=== PATIENT | female | born 1935 | race Caucasian/White ===

== ENCOUNTER 2021-01-12 07:46 | Emergency (ER) | payer MEDICARE, OTHER, SELFPAY ==
[2021-01-12] VITALS (7 sets, daily range): BP systolic 129–150; BP diastolic 59–80; PULSE 76–92; RESP 18; TEMP 36.6; O2SAT 91–93; BMI 28.8
--- NOTE | 2021-01-12 07:55 | DI.RAD.S_ITS ---
PROCEDURE: XR SHOULDER RT MIN 2V INDICATIONS: shoulder pain TECHNIQUE: 3 views of the shoulder were acquired. COMPARISON: None. FINDINGS: Bones: No acute fracture. Severe glenohumeral joint degeneration with [id number] appearance. Diffuse osteopenia. Moderate AC joint degeneration also noted. Bulky osteophyte formation at the inferior glenohumeral head. Soft tissues: No suspicious soft tissue calcifications. IMPRESSION: Severe glenohumeral joint degeneration. No definite fracture although advanced arthritic changes results in suboptimal study sensitivity. Dictated by: Hernando Pa M.D. on 01/12/2021 at 10:29 Approved by: Hernando Pa M.D. on 01/12/2021 at 10:38
--- NOTE | 2021-01-12 07:55 | DI.RAD.S_ITS ---
PROCEDURE: XR CHEST 1V INDICATIONS: Fall TECHNIQUE: One view of the chest was acquired. COMPARISON: None. FINDINGS: Surgical changes and devices: None. Lungs and pleura: There is consolidation in the right lung base along with a 2.9 centimeter nodular opacity projecting over the right atrium. There is also a 2.7 centimeter nodular opacity projecting over the left lung base just lateral to the left heart border. No pleural effusions or pneumothorax. Mediastinum: Mediastinal contours appear normal. Heart size is normal. Bones and chest wall: No suspicious bony lesions. Overlying soft tissues appear unremarkable. IMPRESSION: Nodular opacities and airspace consolidation in the lung bases. Findings are nonspecific. A CT chest is recommended for further evaluation. Dictated by: Tomas Brito M.D. on 01/12/2021 at 9:16 Approved by: Tomas Brito M.D. on 01/12/2021 at 9:31
--- NOTE | 2021-01-12 07:59 | DI.CT.S_ITS ---
PROCEDURE: CT CERVICAL SPINE WO CON INDICATIONS: fall, unknown TECHNIQUE: Noncontrast 3 mm thick sections acquired from the skull base to the T4 level. Sagittal and coronal reformats were then constructed. For radiation dose reduction, the following was used: automated exposure control, adjustment of mA and/or kV according to patient size. COMPARISON: [facility], CT, CT CERVICAL SPINE WITHOUT CONTRAST, 01/14/2020, 14:01. FINDINGS: Image quality: Excellent. Bones: No fractures or dislocations. Visualized superior ribs are intact. Cervical spondylitic change. Multilevel bilateral cervical facet arthropathy. Multilevel bony foraminal min narrowing, most significantly at C3-C4 and C4-C5 and C5-C6 on the left. Soft tissues: Prevertebral soft tissues are normal in thickness. No paravertebral hematomas. No apical pneumothoraces. IMPRESSION: 1. No evidence of acute cervical fracture or dislocation. 2. Cervical spondylitic change. Dictated by: Mario Middleton M.D. on 01/12/2021 at 8:48 Approved by: Mario Middleton M.D. on 01/12/2021 at 8:52
--- NOTE | 2021-01-12 08:01 | ED.FALL ---
HPI - Fall General Chief Complaint: Fall Stated Complaint: Fall out of bed Time Seen by Provider: 01/12/21 07:47 Source: patient and EMS Mode of arrival: EMS Limitations: no limitations History of Present Illness HPI Narrative: 85-year-old female comes to the emergency department after fall out of bed. Patient lives at a care facility. Staff states that it was unwitnessed fall that they believe it happened approximately 45 minutes prior to arrival. Patient per staff was not her baseline mental status. Per EMS she is mildly confused but conversant. She tells them it is Wendi but also has a Wendi tree up in her room. Patient is able to answer quite a few questions without issue for them. Patient has a history of AFib, autonomic peripheral neuropathy, hypertension, dyslipidemia and does take Pradaxa. She states she has an allergy to sulfa. She describes orthopedic injury for her knee. At this time she has complained of right shoulder discomfort coming across her upper thoracic region. She denies any other symptoms. She is unaware if she hit her head. She denies headache she denies neck pain. No chest pain or shortness of breath. She denies any pelvic or hip pain. She states both her knees are uncomfortable but she is able to move them. She denies any numbness or tingling. Related Data Allergies Allergy/AdvReac Type Severity Reaction Status Date / Time Sulfa (Sulfonamide Allergy Unknown Verified 01/12/21 08:08 Antibiotics) Review of Systems Review of Systems ROS Unobtainable: All systems reviewed & are unremarkable except as noted in HPI and below Patient History Social History Smoking Status: Never smoker Exam Narrative Exam Narrative: GEN: Patient appears in mild distress. HEAD: No evidence of trauma, no raccoon/Aj sign. NECK: Nontender, painless range of motion, trachea midline Positive Nexus criteria, there is no mid line tenderness, distracting injury, questionable altered mental status,no neuro deficit, recent EtOH. EYES: PERRLA, EOMI ENT: External inspection normal, trachea is midline, TM's are normal no hemotypanum, Nares are clear, no septal hematoma, no dental or oral injury, airway is normal and with normal occlusion, No bony tenderness RESP: Chest is nontender and has symmetric movement, no ecchymosis, breath sounds are normal no crackles, wheezes or rales CVS: Heart sounds are normal, no murmur noted, No JVD. ABG/GI: Nontender, soft, normal bowel sounds, no distention, no organomegaly, pelvic rock is negative. NEURO: Oriented to self and location and general situation, neuro is grossly intact, sensation and motor is normal all 4 extremities moving, cranial nerves II through XII are intact, GCS is 14 PSYCH: Normal mood and affect SKIN: Intact, warm and dry, no crepitus and without decubitus BACK: No CVA tenderness, no vertebral tenderness, no step-off's, no crepitus EXT: Patient has some mild right shoulder tenderness but no obvious deformity. Patient does have good range of motion in that shoulder, no other bony tenderness, are nontender, no pedal edema, normal color and temperature, normal range of motion of extremities with normal tendon exam, 2+ pulses in all four extremities Initial Vital Signs Initial Vital Signs: Vital Signs Temperature 97.8 F 01/12/21 07:50 Pulse Rate 88 01/12/21 07:50 Respiratory Rate 18 01/12/21 07:50 Blood Pressure 144/76 H 01/12/21 07:50 Pulse Oximetry 93 01/12/21 07:50 Scores GCS Hackett coma scale eye opening: Spontaneous Ibis coma scale verbal response: Confused Hackett coma scale motor response: Obey commands Hackett coma scale total score: 14 Course Orders Ordered: Discontinued Medications Acetaminophen (Acetaminophen 325 Mg Tablet) 975 mg PO NOW ONE Stop: 01/12/21 07:56 Last Admin: 01/12/21 08:31 Dose: 975 mg Documented by: RUTHANN Vital Signs Vital signs: Vital Signs - 8 hr 01/12/21 12:40 Pulse Rate 76 Respiratory Rate 18 Blood Pressure 129/59 L Pulse Oximetry 92 MDM - Fall Imaging Data Extremity x-ray #1: Radiologist's Impression: [address] [address] XRay Report Signed Patient: Oliva Lerma MR#: [id number] : 1935 Acct:[id number] Age/Sex: 85 / F Date of Service: 01/12/21 Loc: ED Accession Number: [id number] ?? Procedure: XR shoulder RT min 2V Ordering Provider: Renea Edge D.O. PROCEDURE:? XR SHOULDER RT MIN 2V ? INDICATIONS:? shoulder pain ? TECHNIQUE:? 3 views of the shoulder were acquired.? ? COMPARISON:? None. ? FINDINGS:? ? Bones:? No acute fracture.? Severe glenohumeral joint degeneration with [id number] appearance.? Diffuse osteopenia.? Moderate AC joint degeneration also noted.? Bulky osteophyte formation at the inferior glenohumeral head. ? Soft tissues:? No suspicious soft tissue calcifications.? ? IMPRESSION:? Severe glenohumeral joint degeneration.? No definite fracture although advanced arthritic changes results in suboptimal study sensitivity. ? Dictated by: Hernando Pa M.D. on 01/12/2021 at 10:29 ? ? Approved by: Hernando Pa M.D. on 01/12/2021 at 10:38?? CT scan - head: Radiologist's Impression: Oliva Lerma??85??F??1935 ? Allergy/Adv: Sulfa (Sulfonamide Antibiotics) (More??) Close Head CT (Signed) Yi Jimenes - 01/12/[address] (Signed) Mario Middleton - 01/12/21 Shoulder X-Ray (Signed) Hernando Pa - 01/12/21 Chest X-Ray (Signed) Tomas Brito - 01/12/21 Launch?[place] [address] CT Scan Report Signed Patient: Oliva Lerma MR#: [id number] : 1935 Acct:[id number] Age/Sex: 85 / F Date of Service: 01/12/21 Loc: ED Accession Number: [id number] ?? Procedure: CT head/brain wo con Ordering Provider: Renea Edge D.O. PROCEDURE:? CT HEAD/BRAIN WO CON ? INDICATIONS:? fall on pradaxa, ? change mental status ? TECHNIQUE:? Noncontrast 4.5 mm thick angled axial sections acquired from the foramen magnum to the vertex, with coronal and sagittal reformats.? For radiation dose reduction, the following was used:? automated exposure control, adjustment of mA and/or kV according to patient size.? ? COMPARISON:? [facility], CT, CT HEAD WITHOUT CONTRAST, 01/14/2020, 14:01. ? FINDINGS:? Image quality:? Excellent.? ? CSF spaces:? Basal cisterns are patent.? No extra-axial fluid collections.? The ventricles are symmetric in size and shape.? ? Brain:? No intracranial bleeds or masses.? There is cerebral volume loss for age, with resultant ventricular and sulcal prominence.? There are periventricular and deep white matter chronic small vessel ischemic changes.? There is intracranial internal carotid artery atherosclerosis.? ? Skull and face:? Calvarium and visualized facial bones appear intact, without suspicious lesions.? Small left parietal occipital scalp hematoma. ? Sinuses:? Visualized sinuses and mastoids are clear.? ? IMPRESSION:? ? 1. No acute intracranial process. ? 2. Moderate atrophy and chronic microvascular ischemic changes. ? ? The above findings are concordant with preliminary report. ? ? ? Dictated by: Yi Jimenes M.D. on 01/12/2021 at 8:56 ? ? Approved by: Yi Jimenes M.D. on 01/12/2021 at 8:58? CT - cervical spine: Radiologist's Impression: Oliva Lerma??85??F??1935 ? Allergy/Adv: Sulfa (Sulfonamide Antibiotics) (More??) Close Head CT (Signed) Yi Jimenes - 01/12/[address] (Signed) Mario Middleton - 01/12/21 Shoulder X-Ray (Signed) Hernando Pa - 01/12/21 Chest X-Ray (Signed) Tomas Brito - 01/12/21 Launch?[place] [address] CT Scan Report Signed Patient: Oliva Lerma MR#: [id number] : 1935 Acct:[id number] Age/Sex: 85 / F Date of Service: 01/12/21 Loc: ED Accession Number: [id number] ?? Procedure: CT cervical spine wo con Ordering Provider: Renea Edge D.O. PROCEDURE:? CT CERVICAL SPINE WO CON ? INDICATIONS:? fall, unknown ? TECHNIQUE:? Noncontrast 3 mm thick sections acquired from the skull base to the T4 level.? Sagittal and coronal reformats were then constructed.? For radiation dose reduction, the following was used:? automated exposure control, adjustment of mA and/or kV according to patient size.? ? COMPARISON:? [facility], CT, CT CERVICAL SPINE WITHOUT CONTRAST, 01/14/2020, 14:01. ? FINDINGS:? Image quality:? Excellent.? ? Bones:? No fractures or dislocations.? Visualized superior ribs are intact.? Cervical spondylitic change.? Multilevel bilateral cervical facet arthropathy.? Multilevel bony foraminal min narrowing, most significantly at C3-C4 and C4-C5 and C5-C6 on the left. ? Soft tissues:? Prevertebral soft tissues are normal in thickness.? No paravertebral hematomas.? No apical pneumothoraces.? ? ? IMPRESSION:? ? 1. No evidence of acute cervical fracture or dislocation. ? 2. Cervical spondylitic change. ? Dictated by: Mario Middleton M.D. on 01/12/2021 at 8:48 ? ? Approved by: Mario Middleton M.D. on 01/12/2021 at 8:52?? Chest x-ray: Radiologist's Impression: Launch?[place] [address] XRay Report Signed Patient: Oliva Lerma MR#: [id number] : 1935 Acct:[id number] Age/Sex: 85 / F Date of Service: 01/12/21 Loc: ED Accession Number: [id number] ?? Procedure: XR chest 1V Ordering Provider: Renea Edge D.O. PROCEDURE:? XR CHEST 1V ? INDICATIONS:? Fall ? TECHNIQUE:? One view of the chest was acquired.? ? COMPARISON:? None. ? FINDINGS:? ? Surgical changes and devices:? None.? ? Lungs and pleura:? There is consolidation in the right lung base along with a 2.9 centimeter nodular opacity projecting over the right atrium.? There is also a 2.7 centimeter nodular opacity projecting over the left lung base just lateral to the left heart border.? No pleural effusions or pneumothorax.? ? Mediastinum:? Mediastinal contours appear normal.? Heart size is normal.? ? Bones and chest wall:? No suspicious bony lesions.? Overlying soft tissues appear unremarkable.? ? IMPRESSION:? Nodular opacities and airspace consolidation in the lung bases.? Findings are nonspecific.? A CT chest is recommended for further evaluation. ? ? Dictated by: Tomas Brito M.D. on 01/12/2021 at 9:16 ? ? Approved by: Tomas Brito M.D. on 01/12/2021 at 9:31? MDM Narrative Medical decision making narrative: This is an 85-year-old female who comes to the emergency department after an unwitnessed fall possibly from bed. Patient appears to be at her current baseline she is slightly confused but able to answer majority of questions appropriately. Head CT and C-spine were obtained she was anticoagulated and mildly pleasantly confused. Chest x-ray shows some nodular opacities and airspace consolidation which is nonspecific. Patient's shoulder shows degenerative changes but no acute fractures and patient has good range of motion. Patient is otherwise medically cleared. Discharge Plan Departure Patient Disposition: Home Clinical Impression: Right shoulder pain, Fall Instructions: DI for Shoulder Pain Activity Restrictions/Additional Instructions: Follow-up with your physician in the next week for recheck your not having improvement of your symptoms. You may continue to take Tylenol up to a 1000 mg every 8 hours as needed for pain. Your imaging today does not show any acute changes. Your shoulder x-ray shows degenerative changes but no breaks or fractures or dislocations today. Please return for fevers, new worsening chest pain or shortness of breath, lightheadedness or passing out, persistent vomiting new neck or back pain, altered mental status, new weakness difficulty with movement or other new or concerning symptoms.
--- NOTE | 2021-01-12 08:18 | DI.CT.S_ITS ---
PROCEDURE: CT HEAD/BRAIN WO CON INDICATIONS: fall on pradaxa, ? change mental status TECHNIQUE: Noncontrast 4.5 mm thick angled axial sections acquired from the foramen magnum to the vertex, with coronal and sagittal reformats. For radiation dose reduction, the following was used: automated exposure control, adjustment of mA and/or kV according to patient size. COMPARISON: [facility], CT, CT HEAD WITHOUT CONTRAST, 01/14/2020, 14:01. FINDINGS: Image quality: Excellent. CSF spaces: Basal cisterns are patent. No extra-axial fluid collections. The ventricles are symmetric in size and shape. Brain: No intracranial bleeds or masses. There is cerebral volume loss for age, with resultant ventricular and sulcal prominence. There are periventricular and deep white matter chronic small vessel ischemic changes. There is intracranial internal carotid artery atherosclerosis. Skull and face: Calvarium and visualized facial bones appear intact, without suspicious lesions. Small left parietal occipital scalp hematoma. Sinuses: Visualized sinuses and mastoids are clear. IMPRESSION: 1. No acute intracranial process. 2. Moderate atrophy and chronic microvascular ischemic changes. The above findings are concordant with preliminary report. Dictated by: Yi Jimenes M.D. on 01/12/2021 at 8:56 Approved by: Yi Jimenes M.D. on 01/12/2021 at 8:58
[2021-01-12] MEDS: ACETAMINOPHEN 325 MG TABLET 975 MG PO (08:31)
--- NOTE | 2021-01-12 09:30 | PC.NURSE ---
Pt up to bedside commode for BM and urinary output. Requiring 3 staff for transfer and rajesh-care. Brief placed when pt put back in bed. Personal belongings (soiled pants, watch, earrings) place in labeled bag.
--- NOTE | 2021-01-12 12:20 | PC.NURSE ---
Report called to living facility. They now state that she is more confused than normal. MD aware. Plan to DC with workup as-is. Imaging negative. Facility to follow up re labwork.
== END 2021-01-12 12:42 | disposition home or self-care (01) ==
PROVIDERS: Emergency Provider Emergency Medicine
DX: M25.511 Pain in right shoulder (principal); R41.0 Disorientation, unspecified; W06.XXXA Fall from bed, initial encounter
CPT/HCPCS: 70450; 71045; 72125; 73030; 99283; 99284

== ENCOUNTER 2021-07-14 15:34 | Observation (INO) | payer MEDICARE, OTHER, SELFPAY ==
[2021-07-14] VITALS (14 sets, daily range): BP systolic 124–167; BP diastolic 65–83; PULSE 63–69; RESP 16–29; TEMP 36.3–36.4; O2SAT 92–98; BMI 21.5
--- NOTE | 2021-07-14 15:55 | DI.RAD.S_ITS ---
PROCEDURE: XR CHEST 1V INDICATIONS: chest pain TECHNIQUE: One view of the chest was acquired. COMPARISON: [facility], CR, XR CHEST 1 VIEW, 09/02/2018, 11:42. [facility], CR, XR CHEST 1V, 01/12/2021, 8:09. [facility], CR, XR CHEST 1 VIEW, 01/12/2021, 19:02. FINDINGS: Surgical changes and devices: None. Lungs and pleura: Nodular opacities adjacent to the left heart border are unchanged since at least August 2018 study. Increased interstitial markings in both lungs. No pleural effusions or pneumothorax. Mediastinum: Mediastinal contours appear normal. Heart size is enlarged. Bones and chest wall: No suspicious bony lesions. Overlying soft tissues appear unremarkable. IMPRESSION: Cardiomegaly with findings of mild to moderate pulmonary edema. Dictated by: Tomas Brito M.D. on 07/14/2021 at 16:44 Approved by: Tomas Brito M.D. on 07/14/2021 at 16:44
[2021-07-14 16:00] LABS: Add Manual Diff / Slide Review NO; Basophils Absolute Auto 100 /uL (0-100); Eosinophils Absolute Auto 0 /uL (0-450); Eosinophils Percent Auto 0.5 % (2-4); Hematocrit 45.6 % (36-46); Hemoglobin 15.4 g/dL (12.0-16.0); Lymphocytes Absolute Auto 1500 /uL (1100-4500); Lymphocytes Percent Auto 22.3 % (25-40); Mean Corpuscular HGB Conc 33.8 % (30-36); Mean Corpuscular Volume 85.8 fL (80-100); Monocytes Absolute Auto 700 /uL (0-900); Monocytes Percent Auto 9.7 % (3-14); Neutrophils Absolute Auto 4500 /uL (1500-7000); Neutrophils Percent Auto 66.5 % (50-75); Platelet Count 224 X10^3/uL (150-400); Red Blood Cell Count 5.32 X10^6/uL (4.0-5.2); Red Cell Distribution Width 16.5 % (11.6-14.8); White Blood Cell Count 6.8 X10^3/uL (4.5-11.0)
[2021-07-14 16:25] LABS: Alanine Aminotransferase 16 IU/L (<35); Albumin 4.3 g/dL (3.5-5.0); Albumin Globulin Ratio 1.5 (1.0-2.8); Alkaline Phosphatase 73 U/L (38-126); Aspartate Aminotransferase 26 IU/L (14-36); BUN Creatinine Ratio 15.2 (6-22); Bilirubin Total 0.6 mg/dL (0.2-1.3); Blood Urea Nitrogen 16 mg/dL (7-17); Carbon Dioxide 27 mmol/L (22-32); Chloride 103 mmol/L (98-107); Creatine Kinase 213 U/L (30-135); Estimated Glomerular Filt Rate 49.9 mL/min (>60); Globulin 2.9 g/dL (1.7-4.1); Glucose 99 mg/dL (80-110); HEMOLYSIS < 15 (0-50); Lipase 90 U/L (23-300); Magnesium 2.2 mg/dL (1.6-2.3); Potassium 4.6 mmol/L (3.4-5.1); Sodium 137 mmol/L (137-145); Total Protein 7.2 g/dL (6.3-8.2)
[2021-07-14 16:37] LABS: Troponin I < 0.012 ng/mL (0.01-0.034)
[2021-07-14 16:39] LABS: CKMB % Relative Index 1.7 % (1.5-5.0); Creatine Kinase MB 3.53 ng/mL (<2.37)
--- NOTE | 2021-07-14 16:41 | PC.NURSE ---
Patient is AO to name/ but disoriented to year/president and personal residence location. 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 Otherwise, pt is unclear as to her current health situation or why she is at the hospital today.
--- NOTE | 2021-07-14 16:53 | ED_ITS ---
HPI - Weakness General Chief complaint: Extremity Injury, Upper Stated complaint: Right side back and arm pain Time Seen by Provider: 07/14/21 16:45 Source: EMS and other Mode of arrival: EMS History of Present Illness HPI Narrative: Patient is an 85-year-old female who has had a [facility] facility she is wheelchair-bound presenting with generalized weakness. According to the facility she may be leaning more toe right. Patient denies any complaint except weakness. She has no pain. She denies any falling. There is no report from the facility that she has fallen. He apparently has reported some knee pain and arm pain but seems moving all extremities is without difficulty and no obvious sign of trauma. He denies any chest pain or palpitations. She overall appears comfortable. According to the daughter she has a history of dementia, she was admitted to [facility] for atrial fibrillation place time xa. She went to a rehab facility and then had further PT. She apparently got up to 1 person assist and then was released. Daughter states that she has been wheelchair- bound since then but has definitely been declining. According to the facility she is definitely a 2 person assist now she was previously able to help with transfers but extremely today and unable to do so. Related Data Allergies Allergy/AdvReac Type Severity Reaction Status Date / Time Sulfa (Sulfonamide Allergy Unknown Verified 01/12/21 08:08 Antibiotics) Review of Systems Constitutional Constitutional: Denies body ache(s), Denies chills and Denies frequent falls Eyes Eyes: Denies exophthalmos Cardiovascular Cardiovascular: Denies chest pain and Denies irregular heart rhythm Respiratory Respiratory: Denies chest congestion and Denies cough Gastrointestinal Gastrointestinal: Denies abdominal pain, Denies nausea and Denies vomiting Genitourinary Genitourinary: Reports urinary incontinence Musculoskeletal Musculoskeletal: Reports as per HPI, Reports arthralgias and Denies myalgias Integumentary/Breasts Skin/Breast: Denies rash and Denies skin pain Neurologic Neurologic: Reports as per HPI (dementia at baseline) and Denies frequent falls Patient History Medical History Dementia Social History Smoking Status: Never smoker Smoking Status: Never smoker alcohol intake frequency: other Substance Use Type: does not use Exam Initial Vital Signs Initial Vital Signs: Vital Signs Pulse Rate 64 07/14/21 15:48 Respiratory Rate 17 07/14/21 15:48 Pulse Oximetry 94 07/14/21 15:48 GENERAL: Alert pleasant 85-year-old female appears in no acute distress HEENT: Head atraumatic,EOMI, pupils reactive, face symmetric, moist mucous membranes CARDIOVASCULAR: Regular rate and rhythm without murmurs, rubs or gallops. RESPIRATORY: Breath sounds equal bilaterally, no wheezes rales or rhonchi. ABDOMEN: Soft, nontender. Normoactive bowel sounds all 4 quadrants. No guarding or rebound. EXTREMITIES: Normal range of motion, no clubbing or edema. Neurovascularly intact NEUROLOGICAL: Alert and oriented x2. Good [id number] moving all extremities SKIN: Warm, dry, no laceration, no petechiae, no rashes or lesions. Course Orders Ordered: ED Orders 07/14/21 15:48 Complete Blood Count AUTO DIFF Stat Comprehensive Metabolic Panel Stat Lipase Stat Magnesium Stat Troponin & CK Cardiac Panel Stat 07/14/21 15:55 XR chest 1V Stat EKG-12 Lead Stat 07/14/21 16:53 CT head/brain wo con Stat 07/14/21 17:04 Urinalysis and Microscopic Stat Vital Signs Vital signs: Vital Signs - 8 hr 07/14/21 15:48 07/14/21 15:50 07/14/21 16:00 Temperature 97.4 F L Pulse Rate 64 66 63 Respiratory Rate 17 20 18 Blood Pressure 167/77 H Pulse Oximetry 94 98 95 07/14/21 16:30 07/14/21 17:00 07/14/21 17:01 Temperature Pulse Rate 66 65 65 Respiratory Rate 16 17 18 Blood Pressure 141/80 H 154/83 H Pulse Oximetry 96 96 96 07/14/21 17:25 07/14/21 17:30 Temperature Pulse Rate 66 67 Respiratory Rate 25 H 28 H Blood Pressure 167/77 H 167/73 H Pulse Oximetry 96 95 MDM - Weakness Lab Data Result diagrams: 07/14/21 15:48 07/14/21 15:48 Labs: Lab Results 07/14/21 07/14/21 07/14/21 Range/Units 15:48 15:48 17:04 WBC 6.8 (4.5-11.0) X10^3/uL RBC 5.32 H (4.0-5.2) X10^6/uL Hgb 15.4 (12.0-16.0) g/dL Hct 45.6 (36-46) % MCV 85.8 (80-100) fL MCH 29.0 (26-34) PG MCHC 33.8 (30-36) % RDW 16.5 H (11.6-14.8) % Plt Count 224 (150-400) X10^3/uL Neut % (Auto) 66.5 (50-75) % Lymph % (Auto) 22.3 L (25-40) % [place] % (Auto) 9.7 (3-14) % Eos % (Auto) 0.5 L (2-4) % Baso % (Auto) 1.0 (0-2) % Neut # (Auto) 4500 (0134-2717) /uL Lymph # (Auto) 1500 (6351-7793) /uL [place] # (Auto) 700 (0-900) /uL Eos # (Auto) 0 (0-450) /uL Baso # (Auto) 100 (0-100) /uL Sodium 137 (137-145) mmol/L Potassium 4.6 (3.4-5.1) mmol/L Chloride 103 (98-107) mmol/L Carbon Dioxide 27 (22-32) mmol/L BUN 16 (7-17) mg/dL Creatinine 1.05 H (0.52-1.04) mg/dL Estimated GFR 49.9 L (>60) mL/min BUN/Creatinine Ratio 15.2 (6-22) Glucose 99 (80-110) mg/dL Calcium 9.0 (8.4-10.2) mg/dL Magnesium 2.2 (1.6-2.3) mg/dL Total Bilirubin 0.6 (0.2-1.3) mg/dL AST 26 (14-36) IU/L ALT 16 (<35) IU/L Alkaline Phosphatase 73 (38-126) U/L Total Creatine Kinase 213 H (30-135) U/L CK-MB (CK-2) 3.53 H (<2.37) ng/mL CK-MB (CK-2) Rel Index 1.7 (1.5-5.0) % Troponin I < 0.012 (0.01-0.034) ng/mL Total Protein 7.2 (6.3-8.2) g/dL Albumin 4.3 (3.5-5.0) g/dL Globulin 2.9 (1.7-4.1) g/dL Albumin/Globulin Ratio 1.5 (1.0-2.8) Lipase 90 (23-300) U/L Urine Color Yellow Urine Appearance Clear Urine pH 5.5 (4.5-8.0) Ur Specific [place] 1.010 (1.000-1.035) Urine Protein Negative (Negative) Urine Glucose (UA) Negative (Negative) g/dL Urine Ketones Negative (NEGATIVE) Urine Occult Blood Negative (Negative) Urine Nitrate Negative (Negative) Urine Bilirubin Negative (NEGATIVE) Urine Urobilinogen 0.2 (0.2) E.U./dL Ur Leukocyte Esterase Negative (NEGATIVE) Urine RBC None seen (0-5/HPF) Urine WBC None seen (0-5/HPF) Urine Bacteria None seen (None) Ur Culture Indicated? Cult not indicated Micro UA Comment Microscopic normal Imaging Data CT scan - head: Radiologist Impression: PROCEDURE:? CT HEAD/BRAIN WO CON ? INDICATIONS:? weakness ? TECHNIQUE:? Noncontrast 4.5 mm thick angled axial sections acquired from the foramen magnum to the vertex, with coronal and sagittal reformats.? For radiation dose reduction, the following was used:? automated exposure control, adjustment of mA and/or kV according to patient size.? ? COMPARISON:? [facility], CT, CT HEAD/BRAIN WO CON, 01/12/2021, 8:17. ? FINDINGS:? Image quality:? Images are degraded by motion artifact.? ? CSF spaces:? Basal cisterns are patent.? No extra-axial fluid collections.? The ventricles are symmetric in size and shape.? ? Brain:? No intracranial bleeds or masses.? There is cerebral volume loss for age, with resultant ventricular and sulcal prominence.? There are periventricular and deep white matter chronic small vessel ischemic changes.? There is intracranial internal carotid artery atherosclerosis.? ? Skull and face:? Calvarium and visualized facial bones appear intact, without suspicious lesions.? ? Sinuses:? Visualized sinuses and mastoids are clear.? ? IMPRESSION:? No acute intracranial abnormality. ? ? Dictated by: Alok Patrick M.D. on 07/14/2021 at 17:49 ?? Chest x-ray: Radiologist Impression: PROCEDURE:? XR CHEST 1V ? INDICATIONS:? chest pain ? TECHNIQUE:? One view of the chest was acquired.? ? COMPARISON:? [facility], CR, XR CHEST 1 VIEW, 09/02/2018, 11:42.? [facility], CR, XR CHEST 1V, 01/12/2021, 8:09.? [facility], CR, XR CHES T 1 VIEW, 01/12/2021, 19:02. ? FINDINGS:? ? Surgical changes and devices:? None.? ? Lungs and pleura:? Nodular opacities adjacent to the left heart border are unchanged since at least August 2018 study.? Increased interstitial markings in both lungs.? No pleural effusions or pneumothorax.? ? Mediastinum:? Mediastinal contours appear normal.? Heart size is enlarged. ? Bones and chest wall:? No suspicious bony lesions.? Overlying soft tissues appear unremarkable.? ? IMPRESSION:? Cardiomegaly with findings of mild to moderate pulmonary edema.? ? ? Dictated by: Tomas Brito M.D. on 07/14/2021 at 16:44 ? ? ECG Data Interpretation: Atrial fibrillation rate [address] changes PVCs noted--no priors MDM Narrative Medical decision making narrative: At this time patient is awake alert she is not in any pain. She has no focal deficits. Head CT is negative. She has no sign of infection. I have spoken to the facility and daughter sounds as though she has had increasing decline. She definitely is more than what the [facility] home can handle. At this time she will need director long term care placement. Dr. Macias has been updated on the situation and kindly accepts to observation Discharge Plan Departure Patient Disposition: Admitted as Observation Clinical Impression: Weakness
--- NOTE | 2021-07-14 16:53 | DI.CT.S_ITS ---
PROCEDURE: CT HEAD/BRAIN WO CON INDICATIONS: weakness TECHNIQUE: Noncontrast 4.5 mm thick angled axial sections acquired from the foramen magnum to the vertex, with coronal and sagittal reformats. For radiation dose reduction, the following was used: automated exposure control, adjustment of mA and/or kV according to patient size. COMPARISON: [facility], CT, CT HEAD/BRAIN WO CON, 01/12/2021, 8:17. FINDINGS: Image quality: Images are degraded by motion artifact. CSF spaces: Basal cisterns are patent. No extra-axial fluid collections. The ventricles are symmetric in size and shape. Brain: No intracranial bleeds or masses. There is cerebral volume loss for age, with resultant ventricular and sulcal prominence. There are periventricular and deep white matter chronic small vessel ischemic changes. There is intracranial internal carotid artery atherosclerosis. Skull and face: Calvarium and visualized facial bones appear intact, without suspicious lesions. Sinuses: Visualized sinuses and mastoids are clear. IMPRESSION: No acute intracranial abnormality. Dictated by: Alok Patrick M.D. on 07/14/2021 at 17:49 Approved by: Alok Patrick M.D. on 07/14/2021 at 17:50
[2021-07-14 17:54] LABS: Appearance Urine UA CLEAR; Bilirubin Urine UA NEGATIVE (NEGATIVE); Color Urine UA YELLOW; Glucose Urine UA NEGATIVE (Negative); Ketones Urine UA NEGATIVE (NEGATIVE); Leukocyte Esterase Urine UA NEGATIVE (NEGATIVE); Nitrite Urine UA NEGATIVE (Negative); Occult Blood Urine UA NEGATIVE (Negative); Protein Urine UA NEGATIVE (Negative); Urobilinogen Urine UA 0.2 E.U./dL (0.2)
[2021-07-14 17:56] LABS: pH Urine UA 5.5 (4.5-8.0)
[2021-07-14 18:01] LABS: Bacteria Urine None Seen; Culture Indicated Urine Cult Not Indicated; RBC Urine None Seen (0-5/HPF); Urine Comments Microscopic Normal; WBC Urine None Seen (0-5/HPF)
[2021-07-14 20:15] LABS: COVID19 - ADMIT (NP swab/PCR) Negative (Negative)
--- NOTE | 2021-07-14 20:22 | P.HP_ITS ---
History of Present Illness History of Present Illness Date Patient Seen: 07/14/21 Time Patient Seen: 20:22 Chief complaint: Right side back and arm pain Narrative: Oliva Lerma is an 85 y.o. female with advanced dementia, atrial fibrillation anticoagulated on dabigitran, and depression and a resident of [facility] was dropped off by EMS stating she was weak. Unable to obtain a meaningful history from the patient as she was unaware that she was even in the hospital. She does acknowledge to being confused as to why she is there, does not remember when told that EMS brought her to the hospital. She states that she does not have any complaints other than at the moment needing to use the bathroom. She denies headaches, falling, shortness of breath, chest pain, nausea vomiting, dysuria, diarrhea or constipation, or weakn ess. Per reports of the emergency department, the facility stated that she normally requires a 1 person assist and now was requiring a 2 person assist. I discussed the case with her daughter Mary Benoit, and she stated that she did not even know the patient was in the hospital until emergency room physician contacted her. She states that the facility normally would call her if the patient has had a fall and would be transported to the hospital. She states she has not been able to reach the facility tonight and that they have not returned her call. Was able to obtain records from a recent hospitalization at [facility] where she was admitted for a 14 day stay from January 12 through January 26 and at that time she was admitted for acute encephalopathy. She was found to have had a episode of nonsustained ventricular tachycardia and had an amiodarone drip, and discharged on p.o. amiodarone. It did not appear they did an echocardiogram on her. The patient is actually a DNR/DNI on comfort measures only. Chest x-ray done in the emergency department only indicated cardiomegaly with [id number] pulmonary edema. CT of the head without contrast did not identify any acute intracranial abnormality it did note intracranial internal carotid artery atherosclerosis and chronic small vessel ischemic changes. She is afebrile, blood pressure 135/76, heart rate 68, respiratory rate 18, oxygen saturation 93% on room air, she weighs 68 kg with a BMI of 21.5. CBC is largely unremarkable, she has what appears to be a mild creatinine bump of 1.05, with an EGFR of 49.9, total CK is elevated at 213, troponin is negative, lipase is negative, UA is negative for a UTI, and COVID-19 PCR is negative. Of note patient's creatinine is elevated over her December hospitalizations which at that time were normal. Patient History Medical History Atrial fibrillation, chronic Dementia Depression Essential hypertension Family & Social History Family history unavailable: Yes Tobacco & Substance use: Smoking Status Never smoker alcohol intake frequency other Substance Use Type does not use Meds Home Medications and Allergies Allergies Allergy/AdvReac Type Severity Reaction Status Date / Time Sulfa (Sulfonamide Allergy Unknown Verified 01/12/21 08:08 Antibiotics) Review of Systems Review of Systems ROS: Yes All systems reviewed with the patient and are negative except as otherwise documented (However, may be unreliable.) Exam Vital Signs (past 8 hours): - 07/14/21 15:48 07/14/21 15:50 07/14/21 16:00 Temperature 97.4 F L Pulse Rate 64 66 63 Respiratory Rate 17 20 18 Blood Pressure 167/77 H Pulse Oximetry 94 98 95 07/14/21 16:30 07/14/21 17:00 07/14/21 17:01 Temperature Pulse Rate 66 65 65 Respiratory Rate 16 17 18 Blood Pressure 141/80 H 154/83 H Pulse Oximetry 96 96 96 07/14/21 17:25 07/14/21 17:30 07/14/21 18:00 Temperature Pulse Rate 66 67 69 Respiratory Rate 25 H 28 H 29 H Blood Pressure 167/77 H 167/73 H Pulse Oximetry 96 95 95 07/14/21 18:29 07/14/21 18:30 07/14/21 19:00 Temperature Pulse Rate 67 67 64 Respiratory Rate 20 27 H 18 Blood Pressure 124/65 Pulse Oximetry 96 96 92 07/14/21 19:08 Temperature Pulse Rate 66 Respiratory Rate 24 Blood Pressure 147/69 H Pulse Oximetry 96 Oxygen Delivery Method Room Air Narrative Exam Narrative: Gen: Alert, oriented, ill appearing 85 y.o. female, pleasantly confused, but at times knows she is confused. HEENT: normocephalic, atraumatic, conjunctiva clear, sclera non-icteric, oral mucosa pink and moist Neck: supple, full ROM, no JVD, trachea is midline Resp: Lungs CTA, non-labored breathing CV: RRR, no murmur or rubs Abd: soft, non-tender, normoactive BTs Skin: no lesions or rashes, dry and intact Neuro: Alert and oriented X 4 w/no focal deficits. Able to follow directions. Speech clear and coherent. Extremities: moves all 4 extremities, is ambulatory, negative Suresh?s sign Psyche: normal mood and affect. Objective Labs Result Diagrams: 07/14/21 15:48 07/14/21 15:48 Labs: Laboratory Results - last 24 hr 07/14/21 07/14/21 07/14/21 15:48 15:48 17:04 WBC 6.8 RBC 5.32 H Hgb 15.4 Hct 45.6 MCV 85.8 MCH 29.0 MCHC 33.8 RDW 16.5 H Plt Count 224 Neut % (Auto) 66.5 Lymph % (Auto) 22.3 L [place] % (Auto) 9.7 Eos % (Auto) 0.5 L Baso % (Auto) 1.0 Neut # (Auto) 4500 Lymph # (Auto) 1500 [place] # (Auto) 700 Eos # (Auto) 0 Baso # (Auto) 100 Sodium 137 Potassium 4.6 Chloride 103 Carbon Dioxide 27 BUN 16 Creatinine 1.05 H Estimated GFR 49.9 L BUN/Creatinine Ratio 15.2 Glucose 99 Calcium 9.0 Magnesium 2.2 Total Bilirubin 0.6 AST 26 ALT 16 Alkaline Phosphatase 73 Total Creatine Kinase 213 H CK-MB (CK-2) 3.53 H CK-MB (CK-2) Rel Index 1.7 Troponin I < 0.012 Total Protein 7.2 Albumin 4.3 Globulin 2.9 Albumin/Globulin Ratio 1.5 Lipase 90 Urine Color Yellow Urine Appearance Clear Urine pH 5.5 Ur Specific [place] 1.010 Urine Protein Negative Urine Glucose (UA) Negative Urine Ketones Negative Urine Occult Blood Negative Urine Nitrate Negative Urine Bilirubin Negative Urine Urobilinogen 0.2 Ur Leukocyte Esterase Negative Urine RBC None seen Urine WBC None seen Urine Bacteria None seen Ur Culture Indicated? Cult not indicated Micro UA Comment Microscopic normal SARS-CoV-2 (PCR) 07/14/21 19:03 WBC RBC Hgb Hct MCV MCH MCHC RDW Plt Count Neut % (Auto) Lymph % (Auto) [place] % (Auto) Eos % (Auto) Baso % (Auto) Neut # (Auto) Lymph # (Auto) [place] # (Auto) Eos # (Auto) Baso # (Auto) Sodium Potassium Chloride Carbon Dioxide BUN Creatinine Estimated GFR BUN/Creatinine Ratio Glucose Calcium Magnesium Total Bilirubin AST ALT Alkaline Phosphatase Total Creatine Kinase CK-MB (CK-2) CK-MB (CK-2) Rel Index Troponin I Total Protein Albumin Globulin Albumin/Globulin Ratio Lipase Urine Color Urine Appearance Urine pH Ur Specific [place] Urine Protein Urine Glucose (UA) Urine Ketones Urine Occult Blood Urine Nitrate Urine Bilirubin Urine Urobilinogen Ur Leukocyte Esterase Urine RBC Urine WBC Urine Bacteria Ur Culture Indicated? Micro UA Comment SARS-CoV-2 (PCR) Negative Assessment & Plan Assessment & Plan narrative: Oliva Lerma is placed into observation for further evaluation of her current placement. She does not appear to have sustained a CVA, troponins have been normal likely ruling out ACS, infectious process appears to have been ruled out given her current weakness. 1. Weakness of unknown cause, unknown if acute or chronic, present on admission * She is ordered for a physical therapy evaluation in the morning to determine if her current placement at an assisted living facilityis appropriate * Care management consult 2. Atrial fibrillation anticoagulated on dabigatran * Continue home dose of dabigatran 150 mg p.o. b.i.d. * Continue home dose of amiodarone 200 mg p.o. daily 3. Depression/anxiety, chronic * Continue home dose of sertraline 50 mg p.o. daily and trazodone p.o. at bedtime VTE Prophylaxis: Wells risk score 1.35 [X] Bilateral SCDs Patient is currently anticoagulated on dabigatran. Patient is placed into observation as her stay is not expected to exceed 2 midnights. FEN: IV fluids: saline lock, diet: General, encourage po fluid intake, labs: CBC, C/BMP, liver enzymes, Mag Consult[employer] None Dispo: unknown at this time Code status: DNR/DNI Comfort measures only per POLST signed by patient on . Mary her daughter is first point of contact. [X] I have utilized all available immediate resources to obtain, update, or review of the patient's current medications COVID-19 COVID-19 status: Negative Result date/Date tested (Pos, Neg/Pending): 07/14/21 Time Spent With Patient Critical Care time: I spent a total of [] minutes of critical care time on this patient's care today; this time is exclusive of procedural time. Scores Wells' Criteria for PE Clinical signs and symptoms of DVT: No PE is #1 Dx or equally likely: No Heart rate > 100: No Immobilization at least 3 days or surg in previous 4 weeks: Yes History of PE or DVT: No Hemoptysis: No Malignancy w/Treatment within 6 months or palliative: No Wells' PE Score total: 1.5 Quality MIPS - Admit I confirm the patient?s Advance Care Plan is present, Code status is documented, Surrogate decision maker is in patient?s record [If Yes, STOP here]: Yes MIPS - DC The patient has current or prior documentation of left ventricular ejection fraction (LVEF) less than 40%, or moderate or severely depressed left ventric ular systolic function.: No
[2021-07-14] MEDS: TRAZODONE 50 MG TABLET PO (22:21)
[2021-07-14] MEDS: DABIGATRAN 75 MG CAPSULE 150 MG PO (22:21)
[2021-07-15] VITALS (8 sets, daily range): BP systolic 122–167; BP diastolic 57–86; PULSE 56–70; RESP 16–21; TEMP 35.9–36.5; O2SAT 91–95
--- NOTE | 2021-07-15 01:54 | PC.NURSE ---
Pt. admitted to the floor room 209 by NR. JALEN @ 2014. Pt. requested to get up to urinate. 2 persons max assist, but was unsuccessful. Not bearing any weight & unable to straighten her Lt. knee. Put her back to bed, she's already incontinent. Brief changed after skin & rajesh care was done. Will continue POC & monitor.
[2021-07-15] MEDS: SODIUM CHLORIDE 0.9% FLUSH 10 ML IV ×2 (06:07→09:17)
[2021-07-15 06:41] LABS: Add Manual Diff / Slide Review NO; Basophils Absolute Auto 0 /uL (0-100); Basophils Percent Auto 0.8 % (0-2); Eosinophils Absolute Auto 100 /uL (0-450); Eosinophils Percent Auto 0.8 % (2-4); Hematocrit 46.2 % (36-46); Hemoglobin 15.6 g/dL (12.0-16.0); Lymphocytes Absolute Auto 1200 /uL (1100-4500); Mean Corpuscular HGB Conc 33.8 % (30-36); Mean Corpuscular Hemoglobin 28.6 PG (26-34); Mean Corpuscular Volume 84.5 fL (80-100); Monocytes Absolute Auto 600 /uL (0-900); Monocytes Percent Auto 9.7 % (3-14); Neutrophils Absolute Auto 4400 /uL (1500-7000); Neutrophils Percent Auto 69.7 % (50-75); Platelet Count 189 X10^3/uL (150-400); Red Blood Cell Count 5.47 X10^6/uL (4.0-5.2); Red Cell Distribution Width 16.2 % (11.6-14.8); White Blood Cell Count 6.3 X10^3/uL (4.5-11.0)
[2021-07-15 06:51] LABS: Alanine Aminotransferase 16 IU/L (<35); Albumin 3.6 g/dL (3.5-5.0); Albumin Globulin Ratio 1.2 (1.0-2.8); Alkaline Phosphatase 72 U/L (38-126); Aspartate Aminotransferase 36 IU/L (14-36); BUN Creatinine Ratio 14.6 (6-22); Bilirubin Total 0.8 mg/dL (0.2-1.3); Blood Urea Nitrogen 12 mg/dL (7-17); Calcium 8.9 mg/dL (8.4-10.2); Carbon Dioxide 27 mmol/L (22-32); Chloride 107 mmol/L (98-107); Estimated Glomerular Filt Rate > 60.0 mL/min (>60); Globulin 2.9 g/dL (1.7-4.1); Glucose 98 mg/dL (80-110); HEMOLYSIS < 15 (0-50); Potassium 3.9 mmol/L (3.4-5.1); Sodium 139 mmol/L (137-145); Total Protein 6.5 g/dL (6.3-8.2)
[2021-07-15 07:16] LABS: Magnesium 2.1 mg/dL (1.6-2.3)
[2021-07-15] MEDS: DABIGATRAN 75 MG CAPSULE 150 MG PO ×2 (09:11→21:19)
[2021-07-15] MEDS: SERTRALINE 50 MG TABLET PO (09:12)
[2021-07-15] MEDS: AMIODARONE 200 MG TABLET PO (09:12)
--- NOTE | 2021-07-15 09:20 | CM.DANOTE ---
Addendum entered by Holly Glass R.N. 07/15/21 14:37: Called Kika Ashley, she represents terminal carman care facilities and let her know that [facility] dropped off their resident, and can't take her back due to being two person assist, and now, alternate placement needs to happen. Did not leave her details as of yet regarding patient's name. Asked her to call this corporate event planner. Danny at [facility] called back, stated that he does have beds, but no nurse until Monday, so for now, no new admissions. May attempt [place]. Addendum entered by Holly Glass R.N. 07/15/21 14:23: September at [facility] called back and indicated, she really doesn't have anything to skill her on, since weaknes isn't a diagnosis. There for, can't accept. Colleen at [facility] may be able to accept tomorrow with COVID waiver, provider will need to include need for increased P.T. needs since she is max assist, as well as with [facility]. Faxed [facility] and [facility] today's P.T. note, as well as copy of her vaccine information and her PASSR. Addendum entered by Holly Glass R.N. 07/15/21 12:43: [facility], she is familiar with patient. She may be able to accept patient once P.T. notes are in, but she is not sure if she can take tomorrow, but will let this corporate event planner know. Colleen at [facility] may also be able to accept, she will call this corporate event planner back with decision. Addendum entered by Holly Glass R.N. 07/15/21 12:24: Spoke to Leilani rod Viola in admissions. She indicated that they do have an unlocked unit at their facility for terminal carman care. Asked her if she takes COVID waivers, and she indicated that documentation by hospitalist needs to reflect that rooms need to be open at hospital for possible COVID patients. Faxed her over the referral. Faxed [facility], [facility]. Included med sheets, H&P, face sheets, and nursing notes. P.T. notes not yet available. Addendum entered by Holly Glass R.N. 07/15/21 11:24: Spoke to nurse, Anahy, at [facility]. Asked her about patient's baseline, and reason that she was sent over to the hospital. She indicated that patient normally self propells in her wheel-chair, and is a one person assist. She also indicated, she is impulsive, when she's in her room, we routinely check on her, otherwise, she's downstairs with the staff. She gets highest level of care, ADLS, showers, medication assist. She indicated that patient had been leaning to one side, running into objects, concerned that she was having trouble with her vision, and possibly having a stroke. Let her know that there may not be a medical need for patient to be here, but hospitalist will be running tests. P.T is working with her. Anahy indicated that they can't accept patient back if she is a max assist of two, but can take her back if she is a one person assist. She did indicate that patient did go to [facility] back in March before returning to their facility. Will update Dr. Macias as to patient's symptoms at the facility. Asked Anahy if anyone at their facility had called the hospital or daughter when she was brought here, and she indicated, she wasn't sure, she would look into it. Also, asked Anahy if they normally send patients here when they are DNR/DNI, and she indicated, they do send them, unless they are on hospice Asked Anahy if anyone has had a conversation with the daughter about patient needing more care. She indicated, they had not had a long conversation, but she is aware that she is getting close to us not being able to meet her needs. Let her know that this case consultant will call daughter. Called daughter, Mary Benoit. She resides in [facility]. She stated, I know they brought her here, when I spoke to the ER doctor, it was after 7:00pm, and new that there was really not a great reason to admit her. Let her know that the barrier is that [facility] can't take her back if she is max assist. Daughter is willing to do what ever she can do to find her another place if needed. Asked her about finances, and she stated, she has some money, but it's running out quickly, we had to sell her house. Gave her [facility]'s phone number, and encouraged her to ask for Danny in admissions. [facility] would not be appropriate if she is a two person assist. Let her know that this case consultant can attempt to get her into skilled, but barrier is her dementia, and if she is impulsive and trying to get up. Daughter became teary on the phone. She stated, I have appreciated the care at [facility], but I know that they've kept her longer than they probably should have, since she needs more monitoring. Let daughter know that this corporate event planner will start working on skilled facilites, and will also contact Cynthia at [facility] and Danny at [facility] to see if she can start at [facility] and transition to [facility]. Called Cynthia at [facility], she will review. Discussed the barrier of her dementia, but also that patient is a two person assist. Left Danny in admissions for [facility] a message including daughter's phone number. Danny's number is: [phone]. P: DCP to continue to work on discharge plan. There is a possibility of her going back to [place] if she is one person assist, and daughter can have more time to look for facilities. Started with [facility], will try [facility], and [facility], along with Viola, (daughter mentined). Holly Glass RN/Keyseater Operator Original Note: DCP: Case received, EMR reviewed and met with patient. Introduced self and role. Was able to get limited information from patient as well as her chart regarding her mobility at baseline and living situation. DCP assesssment completed with information currently available. Patient is an 85 year old female who admitted yesterday afternoon to the care of the hospitalist team. PCP: Unknown at this time. Payer: confirmed: Medicare/[facility]. Patient came to the hospital via ambulance secondary to weakness. Patient has history of advanced dementia, a-fib. EMS dropped her off secondary to weakness. Facility had told EMS that she was originally one person assist, now, two. According to notes from ER, facility did not contact daughter that she came to the ER. Patient is DNR/DNI. Patient is here with cardiomegaly with mild to moderate pulmonary edema. Met briefly with patient. She was sitting up in bed having breakfast. She did give permission to contact her daughter, Mary, she resides in [place]. Will also call [facility] for further information. Patient knows her name, was able to tell this DC Director Blood Bank that she lives at [facility], and likes it there. She is mostly in a wheel-chair. Asked her if they help her with showers, she stated, I don't know when I had my last shower. Patient will be working with P.T. P: DCP to follow closely. Will discuss at team rounds if goals of care have been discussed with daughter. Patient may need skilled, before returning to [facility]. At this time, it is unclear if daughter needs to find a facility that can give her additional care. [facility] as well. Holly Glass RN/Keyseater Operator Discharge Planning/Care Management CM Discharge Assessment Start: 07/15/21 09:18 Freq: Status: Active Protocol: Document 07/15/21 09:18 (Rec: 07/15/21 09:20 [id number]) Discharge Planning Assessment Assigned Electronic Page Makeup System Operator Holly Glass RN/Keyseater Operator Advance Directives? No History Provided By Patient,Medical Record Prior Living Arrangements Alf Facility Household Members caregiver Type of transporation used prior to Relies on Others admit Facility Name Admitted From: [facility] Willing to Return to Facility? Patient wants to return Independent with ADL's No Is patient alert and oriented? To self Needs Assistance With Bathing,Grooming,Meal Prep, Toileting,Managing Medications ,Home Chores / Shopping Caregiver for Another No DME Already Rented / Owned Wheelchair Comment Will have to see if she needs skilled versus returning home. She is to be working with therapy Barriers to Discharge Yes Comment Weakness, and if facility can manage patient Discharge Plan Home Transportation Arrangement Facility Referrals Initiated Other Additional Comment Will see how patient does with P.T. Xiomara Updated in Patient Room with Yes name and ext. # of Electronic Page Makeup System Operator Review Status In Process Next Review Type Continued Stay Review
--- NOTE | 2021-07-15 10:43 | PT.IIE ---
Medical History (Last Reviewed 07/14/21 @ 21:03 by ARY Llanes) Atrial fibrillation, chronic Dementia Depression Essential hypertension Physical Therapy Inpatient Evaluation/Re-Eval M1 PT/OT-IP Prior Functional Status Start: 07/15/21 13:10 Freq: NEEDED Status: Active Protocol: Document 07/15/21 10:43 AB (Rec: 07/15/21 13:34 AB [id number]) Medical Review Prior Functional Status Medical History Reviewed Yes Communication able to make needs known Mobility and Gait pt unable to provide accurate infor: stated that she has help at [facility] and she is not able to ambulate but able to stand to transfer. Per EMR: pt is w/c bound and need 2 person sto assit with transfers Social History Household Members caregiver Living Arrangements Assisted Facility Number of Stairs To Enter/Railing? pt lives at [facility]. M2 PT-IP Current Condition Start: 07/15/21 13:10 Freq: NEEDED Status: Active Protocol: Document 07/15/21 10:43 AB (Rec: 07/15/21 13:34 AB [id number]) Physical Therapy Current Condition Current Condition Evaluation Date 07/15/21 Treatment Diagnosis weakness Onset Date 07/14/21 M3 PT-IP Subjective Start: 07/15/21 13:10 Freq: NEEDED Status: Active Protocol: Document 07/15/21 10:43 AB (Rec: 07/15/21 13:34 AB [id number]) Subjective Physical Therapy Visit Type Type Initial Evaluation Visit Start Time 10:43 Visit Stop Time 11:20 Total Visit Minutes 37 Number of PLATE SLITTER AND INSPECTOR Visits 0 Physical Therapy Visit Comments Patient Comments pt is confused and impulsive and trying to get up from the bed by herself Therapy Pain Assessment Pain When Pain Assessed During Mobility Pain Present Pain Present Pain Reported Location Left Knee Scale Used pain scale not stated Pain Management Techniques Modification of Treatment M4 PT-IP Mobility and Gait Start: 07/15/21 13:10 Freq: NEEDED Status: Active Protocol: Document 07/15/21 10:43 AB (Rec: 07/15/21 13:34 AB [email or web address]) PT-Bed Mobility Assessment Supine to Sit Supine to Sit Maximum Assistance,Head of Bed Elevated,Bedrails Scooting Scooting to Edge of Bed Maximum Assistance PT-Transfer Assessment Sit to and From Stand Sit to and from Stand Maximum Assistance,2 Person Assistance,Use of Upper Extremities Equipment Transfer Assistive Device Gait Belt,Front Wheeled Walker Orthotic/Prosthetic Devices or Brace: No Transfers Transfer Technique Stand Pivot Transfer Ability Level of Assist Maximum Assistance,2 Person Assistance,Use of Upper Extremities Comments Mobility Comments pt trying to get up from the bed by herself. cued pt to lay back and wait for PT to set up chair and agreed. pt completed supine to sit max A and max cues with HOB elevated and with use of bed rail. required mod to max A for sitting balance and increase posterior trunk lean. max A for scooting to EOB. pt completed sit to stand max A x 2 and max cues and only tolerated ~ 5 sec of standing and pt unable to stand fully upright with c/o L knee pain. pt rested. instructed pt to use FWW for support and to stand upright and to transfer to chair. completed sit to stand max A x 2 and max cues and stand pivot transfer to chair max A x 2 and max cues. pt needing a brief change. completed sit to stand from chair and used FWW for support max A and max cues while NAC assisted with brief management and hygiene care. pt sat back on chair. positioned on hcair and call light/table placed within reach. PT-Balance Assessment Sitting Balance and Reactions Static Sitting Balance Ability Poor Dynamic Sitting Balance Ability Poor Standing Balance and Reactions Static Standing Balance Ability Poor Dynamic Standing Balance Ability Poor Device Used FWW M5 PT-IP Objective Assessments Start: 07/15/21 13:10 Freq: NEEDED Status: Active Protocol: Document 07/15/21 10:43 AB (Rec: 07/15/21 13:34 AB [id number]) Orientation Orientation/Cognition Level of Alertness Confusional State Orientation Name,Place Safety Awareness Decreased Safety Awareness Memory Description Short Term Impaired,Custodial Impaired Gross Range of Motion Lower Extremity ROM Assessment Left Impaired Impairments L knee with flexion contracture ~ 25 deg; pt c/o pain with PROM and with (+) crepitus Strength Lower Extremity Strength Assessment Bilaterally Impaired Comments Strength Comments RLE : 3+/5 LLE: 3-/5 Muscle Tone Muscle Tone WNL Yes M6 PT-IP Treatment Start: 07/15/21 13:10 Freq: NEEDED Status: Active Protocol: Document 07/15/21 10:43 AB (Rec: 07/15/21 13:34 AB [email or web address]) Physical Therapy Treatment Education Education Provided Safety M7 PT-IP Assessment and Plan Start: 07/15/21 13:10 Freq: NEEDED Status: Active Protocol: Document 07/15/21 10:43 AB (Rec: 07/15/21 13:34 AB [id number]) PT Summary Assessment and Plan Potential Rehabilitation Potential Fair Status of Condition at Evaluation Evolving Summary Impairments Pain,ROM,Strength,Balance, Coordination,Sensation,Tone, Cognition,Bed Mobility, Transfers,Gait,Activity Tolerance Assessment Summary pt requiring max A x 2 and max cues with sit to stand and transfers and recommending mechanical lift transfers with nursing care. pt had dx dementia and has decrease safety awareness affecting following directions. pt will require SNF rehab at this time. will assess progress. Goals Bed Mobility Goal Minimal Assistance Transfer Goal Minimal Assistance,Front Wheeled Walker Gait Goal Minimal Assistance,Front Wheel Walker Gait Distance 25 Other Goals improve bed mobility SBA, transfers CGA using FWW Days to Meet Goals 10 Frequency of Treatment Frequency Of Treatment Once a Day Treatment Plan Physical Therapy Treatment Plan Bed Mobility Training,Transfer Training,Gait Training, Therapeutic Exercise,Balance Retraining,Discharge Planning, Hot or Cold Pack,Neuromuscular Re-ed,Coordination Retraining ,Manual Therapy Precautions Other Precautions falls Recommendations To Nursing Amount of Assist Needed Mechanical Lift Discharge Recommendations PT Discharge Recommendations SNF Rehab Transportation Needs at Discharge Wheelchair/Cabulance
--- NOTE | 2021-07-15 10:52 | PC.NURSE ---
Addendum entered by Mel Everett R.N. 07/15/21 16:35: Condition remains essentially unchanged. Continue w/plan of care. Addendum entered by Mel Everett R.N. 07/15/21 13:44: Pt sat in chair x 2 hrs; tolerated well 2PA w/clare to place back to bed. Alert w/some confusion noted. SCD in place. Call light w/in reach, bed aklarm on for pt safety. Original Note: Pt awake, denies discomfort when asked. Alert w/some confusion at times. Pt lungs clear, SpO2 93% RA SL RAC intact/patent. Call light w/in reach, bed alarm on for pt safety.
--- NOTE | 2021-07-15 18:53 | P.PN_ITS ---
Subjective Subjective Date Patient Seen: 07/15/21 Interval history: 85-year-old female sent in from with [facility] for weakness of unknown etiology. Patient is now 2 person assist and is no longer able to be cared for at that facility. She has no specific complaints. Exam Vital Signs (past 8 hours): - 07/15/21 11:00 Temperature 96.6 F L Pulse Rate 70 Respiratory Rate 21 Blood Pressure 167/86 H Pulse Oximetry 92 Oxygen Delivery Method Room Air Oxygen Flow Rate 0 Narrative Exam Narrative: Pleasant female resting comfortably without any complaint Resp Other: Lungs clear to auscultation Cardio Other: Cardiac exam: Irregularly irregular normal S1-S2 with a 2/6 systolic ejection murmur GI Other: Abdomen soft and nontender Objective Labs Result Diagrams: 07/15/21 06:05 07/15/21 06:05 Labs: Laboratory Results - last 24 hr 07/14/21 07/15/21 07/15/21 19:03 06:05 06:05 WBC 6.3 RBC 5.47 H Hgb 15.6 Hct 46.2 H MCV 84.5 MCH 28.6 MCHC 33.8 RDW 16.2 H Plt Count 189 Neut % (Auto) 69.7 Lymph % (Auto) 19.0 L Dare % (Auto) 9.7 Eos % (Auto) 0.8 L Baso % (Auto) 0.8 Neut # (Auto) 4400 Lymph # (Auto) 1200 Dare # (Auto) 600 Eos # (Auto) 100 Baso # (Auto) 0 Sodium 139 Potassium 3.9 Chloride 107 Carbon Dioxide 27 BUN 12 Creatinine 0.82 Estimated GFR > 60.0 BUN/Creatinine Ratio 14.6 Glucose 98 Calcium 8.9 Magnesium Total Bilirubin 0.8 AST 36 ALT 16 Alkaline Phosphatase 72 Total Protein 6.5 Albumin 3.6 Globulin 2.9 Albumin/Globulin Ratio 1.2 SARS-CoV-2 (PCR) Negative 07/15/21 06:05 WBC RBC Hgb Hct MCV MCH MCHC RDW Plt Count Neut % (Auto) Lymph % (Auto) Dare % (Auto) Eos % (Auto) Baso % (Auto) Neut # (Auto) Lymph # (Auto) Dare # (Auto) Eos # (Auto) Baso # (Auto) Sodium Potassium Chloride Carbon Dioxide BUN Creatinine Estimated GFR BUN/Creatinine Ratio Glucose Calcium Magnesium 2.1 Total Bilirubin AST ALT Alkaline Phosphatase Total Protein Albumin Globulin Albumin/Globulin Ratio SARS-CoV-2 (PCR) [facility] Medical History Atrial fibrillation, chronic Dementia Depression Essential hypertension Social History household members: caregiver Smoking Status: Never smoker alcohol intake: never Assessment & Plan Assessment & Plan narrative: Weakness of unknown cause, unknown if acute or chronic, present on admission * She is ordered for a physical therapy evaluation in the morning to determine if her current placement at an assisted living facilityis appropriate * Care management consult 2. Atrial fibrillation anticoagulated on dabigatran * Continue home dose of dabigatran 150 mg p.o. b.i.d. * Continue home dose of amiodarone 200 mg p.o. daily 3. Depression/anxiety, chronic * Continue home dose of sertraline 50 mg p.o. daily and trazodone p.o. at bedtime 4. Hypertension -will start amlodipine 2.5 mg daily Disposition: Continue to await placement Time Spent With Patient Critical Care time: I spent a total of [] minutes of critical care time on this patient's care today; this time is exclusive of procedural time. Quality VTE Deep Vein Thrombosis/Pulmonary Embolism Present on Admission: No
[2021-07-15] MEDS: TRAZODONE 50 MG TABLET PO (21:19)
--- NOTE | 2021-07-16 07:44 | CM.DPC ---
Addendum entered by Holly Glass R.N. 07/16/21 08:25: Confirmed cone picker time of 12:30 with [facility]. Updated white board at main nursing station, and nurse, Ricky. Had Dr. Macias sign COVID waiver. Colleen was requesting admission medications be faxed over, printed them out for Carrie to fax. Called daughter, Mary, and updated her. She is appreciative. Gave her Colleen at [facility] phone number, as Colleen may also give her ideas of facilities after [facility] such as [facility]. Gave daughter [place]'s phone number, of [place] in admissions. For now, patient will go to [facility] for some rehab, and daughter will look into memory care facilities. As soon as orders are completed, will fax [facility] . Original Note: DCP Cont: Kristin at [facility] left a message stating, we don't think that we can take patient on a COVID waiver. Called Colleen at [facility], and confirmed that she can accept. She does not need an updated COVID swab, will accept one from the 16th. Updated nurse, Ricky, and Dr. Macias. Colleen will call back with time of cone picker. Will update daughter when time is secured. As soon as med sheets are completed, and DC Summary, will ask Carrie to fax to [facility] . P: DCP to work on getting patient to [facility] , and will updated daughter as well. Holly Glass, RN/Diabetes Physician
[2021-07-16 07:50] VITALS: BP 139/96; PULSE 59; RESP 16; TEMP 36.1; O2SAT 94
--- NOTE | 2021-07-16 10:28 | P.DS_ITS ---
History of Present Illness History of Present Illness Date Patient Seen: 07/16/21 Chief complaint: Right side back and arm pain Narrative: Oliva Lerma is an 85 y.o. female with advanced dementia, atrial fibrillation anticoagulated on dabigitran, and depression and a resident of [facility] was dropped off by EMS stating she was weak. Unable to obtain a meaningful history from the patient as she was unaware that she was even in the hospital.? She does acknowledge to being confused as to why she is there, does not remember when told that EMS brought her to the hospital.? She states that she does not have any complaints other than at the moment needi ng to use the bathroom.? She denies headaches, falling, shortness of breath, chest pain, nausea vomiting, dysuria, diarrhea or constipation, or weakness.? Per reports of the emergency department, the facility stated that she normally requires a 1 person assist and now was requiring a 2 person assist.? I discussed the case with her daughter Mary Benoit, and she stated that she did not even know the patient was in the hospital until emergency room physician contacted her.? She states that the facility normally would call her if the patient has had a fall and would be transported to the hospital.? She states she has not been able to reach the facility tonight and that they have not returned her call.? Was able to obtain records from a recent hospitalization at [facility] where she was admitted for a 14 day stay from January 12 through January 26 and at that time she was admitted for acute encephalopathy.? She was found to have had a episode of nonsustained ventricular tachycardia and had an amiodarone drip, and discharged on p.o. amiodarone.? It did not appear they did an echocardiogram on her. The patient is actually a DNR/DNI on comfort measures only. Chest x-ray done in the emergency department only indicated cardiomegaly with [id number] pulmonary edema.? CT of the head without contrast did not identify any acute intracranial abnormality it did note intracranial internal carotid artery atherosclerosis and chronic small vessel ischemic changes.? She is afebrile, blood pressure 135/76, heart rate 68, respiratory rate 18, oxygen saturation 93% on room air, she weighs 68 kg with a BMI of 21.5.? CBC is largely unremarkable, she has what appears to be a mild creatinine bump of 1.05, with an EGFR of 49.9, total CK is elevated at 213, troponin is negative, lipase is negative, UA is negative for a UTI, and COVID-19 PCR is negative.? Of note patient's creatinine is elevated over her December hospitalizations which at that time were normal. Discharge Providers Provider Date of admission: 07/14/21 18:58 Discharge Date: 07/16/21 Consults: 07/14/21 18:41 Consult to [facility] [place] - Mobility Scooter Repairer Stat Comment: need snf place 07/14/21 20:21 Consult to Discharge Planning Routine Comment: ? After hours [place] discharge, increased care needs 07/14/21 21:15 Consult to Physical Therapy Evaluate & Treat Comment: Weakness, appropriateness for continued [place] stay Physician Instructions: Evaluate and Treat 07/15/21 08:00 Consult to Mobility Scooter Repairer Routine Comment: Discharge provider: Meenu Macias MD Summary Hospital Course Discharge Diagnosis: 1. Failure to thrive 2. Chronic atrial fibrillation 3. Dementia 4. Depression and anxiety 5. Hypertension Hospital Course: Patient was admitted to the hospital from her assisted living facility for weak ness and failure to thrive. She had no specific complaints. She does have dementia and is quite forgetful. The patient was not felt to have any acute medical issues. The real issue is she was a 2 person maximum assist and would require more care than could be provided at [facility]. Patient was resting comfortably. Arrangements were made for her to go to [facility]. Patient was discharged appropriately for long-term care. Status at Discharge Cognitive/behavioral status at discharge: at baseline, confused Functional status at discharge: uses cane/walker Overall status at discharge: patient is progressing back to baseline Exam Vital Signs (past 8 hours): - 07/16/21 07:50 Temperature 97.0 F L Pulse Rate 59 L Respiratory Rate 16 Blood Pressure 139/96 H Pulse Oximetry 94 Oxygen Delivery Method Room Air Oxygen Flow Rate 0 Narrative Exam Narrative: Pleasant elderly female lying in bed in no acute distress Resp Other: Lungs clear to auscultation Cardio Other: Cardiac exam irregularly irregular normal S1-S2 GI Other: Abdomen soft nontender Extrem Other: Extremity no edema Objective Labs Result Diagrams: 07/15/21 06:05 07/15/21 06:05 [facility] Medical History Atrial fibrillation, chronic Dementia Depression Essential hypertension Social History household members: caregiver Smoking Status: Never smoker alcohol intake: never Discharge Assessment & Plan Assessment and Plan Assessment: Failure to thrive 2. Chronic atrial fibrillation 3. Dementia 4. Depression and anxiety 5. Hypertension Plan of Treatment: Discharge to [facility] Discharge Plan Discharge Plan Patient Disposition: SNF Transfer to: [facility] Transportation: Cab[facility] Consult as needed: Dental, Hearing, Mental health, Podiatry and Vision I certify the postop hospital care home care is medically necessary on a continuing basis for any conditions for which he/ she received care during this hospitalization.: Yes The receiving facility has agreed to accept transfer and provide medical treatment.: Yes Discharge orders & Medications Prescriptions: New amiodarone 200 mg Tablet 200 mg PO DAILY Qty: 30 0RF sertraline [Zoloft] 50 mg Tablet 50 mg PO DAILY Qty: 30 0RF trazodone 50 mg Tablet 50 mg PO BEDTIME Qty: 30 0RF amlodipine [Norvasc] 5 mg Tablet 2.5 mg PO DAILY Qty: 30 0RF Pradaxa 75 mg Capsule 150 mg PO BID Qty: 30 0RF lactulose 20 gram/30 mL Solution 20 gm PO DAILY Qty: 30 0RF Discharge Health Status Multidrug resistant organism: No MDRO Diet/Activity/Treatments Diet: Diet as Tolerated and Low-sodium Liquid consistency: Normal/Thin Food texture: Regular [facility] Reason for rehabilitation: Recovery r/t decondition Rehab type: Physical therapy and Occupational therapy Discharge Data Attending Provider: Meenu Macias VTE Deep Vein Thrombosis/Pulmonary Embolism Present on Admission: No
[2021-07-16] MEDS: SERTRALINE 50 MG TABLET PO (10:45)
[2021-07-16] MEDS: LACTULOSE 20 GM/30 ML SOLUTION PO (10:45)
[2021-07-16] MEDS: DABIGATRAN 75 MG CAPSULE 150 MG PO (10:45)
[2021-07-16] MEDS: AMIODARONE 200 MG TABLET PO (10:45)
[2021-07-16] MEDS: AMLODIPINE 5 MG TABLET 2.5 MG PO (10:46)
[2021-07-16 11:03] VITALS: O2SAT 94
--- NOTE | 2021-07-16 12:51 | CM.DPNOTE ---
Faxed last of snf referral per Rayna and received fax from [facility] VS. Carrie Kessler CM Assist.
--- NOTE | 2021-07-16 12:59 | PT-IP ANOTE ---
Attempted to see pt at 12:59, pt already d/c to SNF.
--- NOTE | 2021-07-16 13:26 | PC.NURSE ---
Day shift: Pt left unit at approx 1245. Pt has all personal belongings. scripts in SNF packet. SNF packet given to transport person. Report given to RN at [facility] by LUZ hamilton. Pt helped into WC and taken by transport person via WC to [facility].
== END 2021-07-16 13:29 ==
LOC: ED 18:53 → AC 18:59
PROVIDERS: Nurse Practitioner Family; Admitting Provider Internal Medicine; Emergency Provider Emergency Medicine; Referring Provider Emergency Medicine; Visit Provider Internal Medicine
DX: R62.7 Adult failure to thrive (principal); F32.A Depression, unspecified; F41.9 Anxiety disorder, unspecified; I10 Essential (primary) hypertension; I48.20 Chronic atrial fibrillation, unspecified; F03.90 Unspecified dementia, unspecified severity, without behavioral disturbance, psychotic disturbance, mood disturbance, and anxiety; Z79.01 Long term (current) use of anticoagulants; R53.1 Weakness; Z68.21 Body mass index [BMI] 21.0-21.9, adult; Z66 Do not resuscitate; Z20.822 Contact with and (suspected) exposure to COVID-19
CPT/HCPCS: 36415; 70450; 71045; 80053; 81001; 82550; 82553; 83690; 83735; 84484; 85025; 87635; 93005; 93010; 94760; 97162; 99283; 99284; C9803; G0378